=== PATIENT | female | born 1995 | race African-American/Black ===

== ENCOUNTER 2025-06-07 22:41 | Emergency (ER) | payer MEDICAID ==
[~2025-06-07] VITALS: Ht 165.1 cm; Wt 64.0 kg
[2025-06-07 23:26] VITALS: O2SAT 100
[2025-06-08] MEDS: KETOROLAC 15MG/ML VIAL IM ONE
[2025-06-08 00:05] LABS: BASOPHILS % 0.5 % (0.0-2.0); EOSINOPHILS % 3.4 % (0.0-5.0); HEMATOCRIT. 37.7 % (36.0-48.0); HEMOGLOBIN. 12.3 g/dL (12.0-16.0); LYMPHOCYTES % 37.1 % (20.0-50.0); MEAN PLATELET VOLUME 9.5 fl (7.4-10.4); MONOCYTES % 5.9 % (2.0-8.0); NEUTROPHILS % 53.1 % (40.0-76.0); PLATELET 371 x1000/uL (130-400); RED BLOOD CELL COUNT 4.25 mill/uL (4.2-5.4); RED CELL DISTRIBUTION WIDTH 14.3 % (11.6-14.6)
[2025-06-08 00:12] LABS: CREATININE 0.9 mg/dL (0.6-1.0)
[2025-06-08 00:13] LABS: UREA NITROGEN BLOOD 12 mg/dL (9-23)
[2025-06-08 00:14] LABS: ASPARTATE AMINOTRANSFERASE 14 IU/L (<34)
[2025-06-08 00:15] LABS: BILIRUBIN DIRECT < 0.1 mg/dL (<=3.0); BILIRUBIN TOTAL 0.4 mg/dL (0.1-1.0); PROTEIN TOTAL 6.7 g/dL (6.0-8.3)
[2025-06-08 00:20] LABS: CLARITY URINE CLEAR (CLEAR); COLOR URINE YELLOW (YELLOW); GLUCOSE URINE NEGATIVE (NEGATIVE); KETONES URINE NEGATIVE (NEGATIVE); LEUKOCYTE ESTERASE URINE NEGATIVE (NEGATIVE); NITRITE URINE NEGATIVE (NEGATIVE); OCCULT BLOOD URINE NEGATIVE (NEGATIVE); PH URINE 7.5 (4.5-8.0); PROTEIN URINE NEGATIVE (NEGATIVE); SPECIFIC GRAVITY URINE 1.021 (1.005-1.030); UROBILINOGEN URINE 1.0 E.U./dL (0.2-1.0)
[2025-06-08 03:00] VITALS: BP 107/68; PULSE 59; RESP 20; TEMP 36.8; O2SAT 100
== END 2025-06-08 03:27 | disposition home or self-care (01) ==
LOC: ER 22:41
DX: R10.31 Right lower quadrant pain (principal); R10.2 Pelvic and perineal pain; Z88.1 Allergy status to other antibiotic agents; Z88.2 Allergy status to sulfonamides
CPT/HCPCS: 99285; 80076; 80048; 81003; 81025; 85025; 36415; 74176; 76830; 76856; 96372; J1885